=== PATIENT | female | born 1980 | race Caucasian/White ===

== ENCOUNTER → 2017-07-07 | Outpatient (CLI) | payer OTHER ==
[~2017-07-07] VITALS: Ht 170.2 cm; Wt 107.0 kg
[~2017-07-07] MED LIST: BRINTELLIX10 MG PO; IBUPROFEN 800800 M1 PO; PEPCID COMPLET1 EACH PO; WELLBUTRIN XL300 MG PO; XANAX 0.25 MG0.25 MG PO
--- NOTE | ~2017-07-07 | O ---
[address] [address] OPERATIVE REPORT Name: KAILASH WOODSON Room #: REG EMILY Sarah.#: [id number] Admission: 07/07/17 Attend Phys: Kiran Caro MD, Discharge: Date of : 82 Report #: [id number] THIS REPORT FOR: //name// CC: [facility] physician/PCP Kiran Caro DATE OF SERVICE: 07/07/2017 PREOPERATIVE DIAGNOSES: 1. Intermittent dysphagia. 2. Indwelling laparoscopic band. 3. Morbid obesity with a BMI of 38.07. 4. Severe gastroesophageal reflux disease. 5. Snoring disorder. 6. Chronic fatigue. 7. Bilateral knee arthralgia. 8. Lumbago. POSTOPERATIVE DIAGNOSES: 1. Intermittent dysphagia. 2. Indwelling laparoscopic band. 3. Morbid obesity with a BMI of 38.07. 4. Severe gastroesophageal reflux disease. 5. Snoring disorder. 6. Chronic fatigue. 7. Bilateral knee arthralgia. 8. Lumbago. 9. Malpositioned and slipping lap band. 10. Small hiatal hernia. PROCEDURE PERFORMED: Thorough esophagogastroduodenoscopy (EGD). SURGEON: Kiran Caro MD FOLDER MACHINE ADJUSTER: None. ANESTHESIA: Monitored anesthesia care. ESTIMATED BLOOD LOSS: None. COMPLICATIONS: None. SPECIMENS: None. INDICATIONS: The patient is a 37-year-old morbidly obese female who underwent placement of a lap band several years ago and initially had [address] [place] [address] OPERATIVE REPORT Name: KAILASH WOODSON Room #: REG [facility].#: [id number] Admission: 07/07/17 Attend Phys: Kiran Caro MD, Discharge: Date of : 82 Report #: [id number] significant weight loss. Unfortunately, the patient has developed significant intermittent dysphagia with intolerance to solid food at times with overt regurgitation and weight regain of 30 pounds. In addition, the patient has severe medically recalcitrant GERD and as such, indication is for EGD today to evaluate her indwelling lap band to ensure no erosion as well as to fully evaluate the upper GI tract. Findings are delineated in the listing and postoperative diagnoses seen above as well as in the description of the operative procedure below. DESCRIPTION OF PROCEDURE: After explaining the risks, benefits and alternatives of the procedure with the patient in detail in the preoperative holding area and obtaining written consent, the patient was brought to the endoscopy suite supine on her hospital cart. After conducting a thorough timeout procedure verifying correct patient and procedure, the patient was given monitored anesthesia care after positioning her in the left lateral decubitus position. With all pressure points appropriately padded and adequate anesthesia on board, the [employer] upper endoscope was used to intubate the oropharynx and was traversed down in the esophagus. I had difficulty traversing through the gastroesophageal juncture into the gastric lumen where the pylorus was identified and intubated. The scope was advanced to the second portion of the duodenum showing no evidence of duodenitis, gastritis, esophagitis, mass lesions, or ulcerations. There was no erosion seen. A retroflexion view of the EGD scope showed the extrinsic compression of the lap band residing at the level of what appears to be the gastroesophageal juncture. There is also evidence of a small hiatal hernia. The patient was allowed to lighten from anesthesia slightly and we saw evidence of approximately 2-3 cm of craniocaudal movement of the lap band itself showing both malpositioning at the gastroesophageal juncture as well as overt slipping throughout. The stomach was fully desufflated. The scope was straightened out, withdrawn into the distal esophagus where I saw no evidence of esophagitis, nor Nuñez's changes. The scope was then removed and passed off the field completing the procedure. At the end of the procedure, all instrument, needle and sponge counts were correct. The patient tolerated the endoscopy without issue, was transitioned back to the recovery room in stable condition with no apparent complications. <ELECTRONICALLY SIGNED> By: Kiran Caro MD, FACS 07/08/17 1513 1642 1733 Kiran Crao MD, FACS /nt
[2017-07-07 07:28] LABS: HEMATOCRIT 37.1 % (37.0-47.0); HEMOGLOBIN 11.7 gm/dL (12.0-15.0)
== END | disposition home or self-care (01) ==
LOC: GI 07:00
PROVIDERS: Surgery
DX: K95.09 Other complications of gastric band procedure (principal); E66.01 Morbid (severe) obesity due to excess calories; K21.9 Gastro-esophageal reflux disease without esophagitis; R06.83 Snoring; R53.82 Chronic fatigue, unspecified; M25.561 Pain in right knee; M25.562 Pain in left knee; M54.5 Low back pain; K44.9 Diaphragmatic hernia without obstruction or gangrene; F32.9 Major depressive disorder, single episode, unspecified; F41.9 Anxiety disorder, unspecified; Z98.890 Other specified postprocedural states; Z68.38 Body mass index [BMI] 38.0-38.9, adult; Z98.51 Tubal ligation status; Z79.899 Other long term (current) drug therapy
CPT/HCPCS: 62110; 62900

== ENCOUNTER → 2017-08-17 | Outpatient (CLI) | payer OTHER ==
[~2017-08-17] MED LIST changes: +CHEWABLE-VITE1 EAC1 PO
--- NOTE | ~2017-08-17 | EKG ---
[address] [address] ELECTROCARDIOGRAM REPORT Name: KAILASH WOODSON Room #: REG [facility]#: [id number] Admission: 08/17/17 Attend Phys: Kiran Caro MD, Discharge: Date of : 82 Report #: [id number] THIS REPORT FOR: //name// [facility] Test Date: 2017-08-17 Test Time: 11:01:47 Pat Name: KAILASH WOODSON Department: Room: Gender: F [employer] Tank[employer] Driver: Clive DONALD : 1980 Requested By: Kiran Caro Order Number: [id number] MD: Manjinder Huber Measurements Intervals [place] Rate: 71 P: -3 MN: 154 QRS: 10 QRSD: 107 T: 39 QT: 412 QTc: 448 Interpretive Statements Sinus rhythm No previous ECG available for comparison Electronically Signed On 08-17-2017 15:57:53 CDT by Manjinder Huber [email or web address] <ELECTRONICALLY SIGNED> By: Manjinder Huber MD 08/17/17 1557 1101 1101 MD SILVANA Romero
[2017-08-17 10:37] LABS: ABSOLUTE NEUTROPHILS 4.8 thou/uL (1.4-8.2); BASOPHILS 0.8 % (0.0-2.0); EOSINOPHILS 8.6 % (0.0-3.0); HEMATOCRIT 37.6 % (37.0-47.0); HEMOGLOBIN 12.1 gm/dL (12.0-15.0); LYMPHOCYTES 33.2 % (24.0-44.0); MCH 25.2 pg (26.0-34.0); MCHC 32.1 g/dL (28.0-37.0); MCV 78.5 fL (80.0-100.0); MONOCYTES 6.8 % (1.0-8.0); PLATELET COUNT 498 thou/uL (150-400); POLYS 50.6 % (36.0-66.0); RBC 4.79 mil/uL (4.20-5.00); RDW 16.6 % (10.5-14.5); WBC 9.4 thou/uL (4.0-11.0)
[2017-08-17 10:53] LABS: ALBUMIN 3.4 g/dL (3.4-5.0); CALCIUM 8.6 mg/dL (8.5-10.1); POTASSIUM 3.8 mmol/L (3.5-5.1); TOTAL BILIRUBIN 0.3 mg/dL (<0.1-1.0); TOTAL PROTEIN 6.8 g/dL (6.4-8.2)
== END ==
LOC: CV 07:39
PROVIDERS: Surgery
DX: Z01.818 Encounter for other preprocedural examination (principal); R10.9 Unspecified abdominal pain

== ENCOUNTER 2017-08-29 15:26 | Emergency (ER) | payer OTHER ==
[~2017-08-29] VITALS: Ht 167.6 cm; Wt 105.2 kg
[2017-08-29 15:43] LABS: URINE BLOOD 3+ (Negative); URINE CLARITY CLOUDY; URINE COLOR YELLOW; URINE GLUCOSE-RANDOM* NEGATIVE (Negative); URINE KETONES NEGATIVE (Negative); URINE LEUKOCYTES TRACE (Negative); URINE NITRITE NEGATIVE (Negative); URINE PROTEIN (DIPSTICK) 1+ (Negative); URINE SPECIFIC GRAVITY >= 1.030 (1.005-1.035); URINE UROBILINOGEN 0.2 E.U./dl (0.2-1.0)
[2017-08-29 15:46] LABS: ICTOTEST (BILI CONFIRMATORY) Negative (Negative); URINE BILIRUBIN NEGATIVE (Negative)
[2017-08-29 15:49] LABS: SQUAMOUS >10 Many /LPF (0-3)
[2017-08-29 15:50] LABS: CALCIUM OXALATE 4-10 Moderate /LPF (None Seen); YEAST Present (None Seen)
[2017-08-29 15:51] LABS: CASTS None Seen /LPF (None Seen); URINE RBC 3-10 Few /HPF (0-2)
[2017-08-29 15:54] LABS: URINE WBC 0-5 Rare /HPF (0-5)
[2017-08-29 16:12] LABS: ABSOLUTE NEUTROPHILS 5.4 thou/uL (1.4-8.2); BASOPHILS 0.6 % (0.0-2.0); EOSINOPHILS 5.8 % (0.0-3.0); HEMATOCRIT 36.2 % (37.0-47.0); HEMOGLOBIN 11.8 gm/dL (12.0-15.0); LYMPHOCYTES 23.8 % (24.0-44.0); MCH 25.8 pg (26.0-34.0); MCHC 32.6 g/dL (28.0-37.0); MCV 79.1 fL (80.0-100.0); MONOCYTES 8.4 % (1.0-8.0); PLATELET COUNT 465 thou/uL (150-400); POLYS 61.4 % (36.0-66.0); RBC 4.57 mil/uL (4.20-5.00); RDW 16.7 % (10.5-14.5); WBC 8.8 thou/uL (4.0-11.0)
[2017-08-29 16:20] LABS: ANION GAP 8 mmol/L (7-16); BUN 11 mg/dL (7-18); CALCIUM 9.1 mg/dL (8.5-10.1); CHLORIDE 105 mmol/L (98-107); CO2 24 mmol/L (21-32); GLUCOSE 104 mg/dL (74-106); POTASSIUM 3.4 mmol/L (3.5-5.1); SODIUM 137 mmol/L (136-145)
[2017-08-29 16:25] LABS: ALBUMIN 3.5 g/dL (3.4-5.0); DIRECT BILIRUBIN < 0.1 mg/dL (<0.1-0.3); LIPASE 182 U/L (73-393); SGOT 15 U/L (15-37); SGPT 74 U/L (30-65); TOTAL BILIRUBIN 0.2 mg/dL (<0.1-1.0); TOTAL PROTEIN 7.5 g/dL (6.4-8.2)
[2017-08-29] MEDS ORDERED: WELLBUTRIN 100100 MG PO (17:22)
[2017-08-29] MEDS ORDERED: ZOFRAN ODT4 MG PO ×2 (17:22→18:18)
[2017-08-29] MEDS ORDERED: HYDROCODON-ACE118 ML PO (17:23)
[2017-08-29] MEDS ORDERED: PROMS25 WY RECTAL (18:18)
== END 2017-08-29 18:22 | disposition home or self-care (01) ==
LOC: ER 15:26
PROVIDERS: Emergency Medicine
DX: K91.0 Vomiting following gastrointestinal surgery (principal); K21.9 Gastro-esophageal reflux disease without esophagitis; F32.9 Major depressive disorder, single episode, unspecified; F41.9 Anxiety disorder, unspecified

== ENCOUNTER → 2017-12-07 | Outpatient (CLI) | payer OTHER ==
[~2017-12-07] VITALS: Ht 170.2 cm; Wt 89.8 kg
[~2017-12-07] MED LIST changes: +CENTRUM SILVER1 EAC4 PO; +COMPAZINE10 MG PO; +HYDROCODON-ACE118 ML PO; +PROMS25 WY RECTAL; +TRANSDERM-SCOP1 EACH TRANSDERM; +WELLBUTRIN 100100 MG PO; +ZOFRAN ODT4 MG PO
--- NOTE | ~2017-12-07 | PATH ---
[facility] [address] [place] [address] PATHOLOGY RPT PROCEDURE Name: KAILASH WOODSON Room #: REG CL M.R.#: [id number] Admission: 12/07/17 Date of : 82 Discharge: Report #: [id number] Path Case #: [id number] [facility] Accession Number: [id number] . 01 Material submitted: . BX OF GASTRIC POLYP . 01 Clinical history: . Gastric polyp . 02 Diagnosis: Polyp, gastric polyp, endoscopic biopsy: - Compatible with a hyperplasia polyp. - Negative for dysplasia. . (IUV:mother baby rn; 12/08/2017) MBR/12/08/2017 . 02 Electronically signed: . Phoebe Austin MD, Pathologist NPI- [id number] . 01 Gross description: . The specimen is received in formalin, labeled "[place], [place], BX of gastric polyp", are several irregular fragments of espinoza soft tissue measuring 1.0 x 0.4 x 0.1 cm in aggregate. The specimen is entirely submitted in A1. (SWS; 12/07/2017) SHS/SHS . 02 Pathologist provided ICD-10: K31.7 . 02 CPT . 405439 Specimen Comment: A courtesy copy of this report has been sent to Specimen Comment: [phone], . Specimen Comment: Report sent to and Specimen Comment: A duplicate report has been generated due to demographic updates. Performed at: [address], [place], [place] [id number] MD Matty Taylor MD Phone: [phone] Performed at: [address] [id number] [address] [address] PATHOLOGY RPT PROCEDURE Name: KAILASH WOODSON NOAH Room #: REG CLKole Denny.#: [id number] Admission: 12/07/17 Date of : 82 Discharge: Report #: [id number] Path Case #: [id number] MD Phoebe Austin MD Phone: [phone]
== END | disposition home or self-care (01) ==
LOC: GI 07:11
DX: K31.7 Polyp of stomach and duodenum (principal); F32.9 Major depressive disorder, single episode, unspecified; F41.9 Anxiety disorder, unspecified; E66.01 Morbid (severe) obesity due to excess calories; K21.9 Gastro-esophageal reflux disease without esophagitis; K44.9 Diaphragmatic hernia without obstruction or gangrene; Z98.51 Tubal ligation status; Z98.890 Other specified postprocedural states; Z87.19 Personal history of other diseases of the digestive system; Z68.36 Body mass index [BMI] 36.0-36.9, adult; Z79.899 Other long term (current) drug therapy; Z98.84 Bariatric surgery status
CPT/HCPCS: 62110; 62900

== ENCOUNTER → 2017-12-15 | Outpatient (CLI) | payer OTHER | LOC: RAD 07:32 | DX: R11.2 Nausea with vomiting, unspecified (principal); R10.9 Unspecified abdominal pain; E66.01 Morbid (severe) obesity due to excess calories; K21.9 Gastro-esophageal reflux disease without esophagitis ==